=== PATIENT | male | born 1975 | race African-American/Black ===

== ENCOUNTER 2016-09-21 01:07 | Inpatient (IN) | payer OTHER ==
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
[2016-09-21 04:04] VITALS: BMI 25.2
[2016-09-21] MEDS ORDERED: NICOTINE POLACRILEX 2 MG GUM BUC PRN (04:14)
[2016-09-21] MEDS ORDERED: MAGNESIUM CITRATE 300 ML BOTTLE PO PRN (04:14)
[2016-09-21] MEDS ORDERED: MAGNESIUM HYDROX 2400MG/30ML ORAL SUSPENSION 30 ML CUP PO PRN (04:14)
[2016-09-21] MEDS ORDERED: P-EPHED 60MG/TRIPROLIDI 2.5MG TABLET PO PRN (04:14)
[2016-09-21] MEDS ORDERED: guaiFENesin/D-METHORPHAN HB 10 ML UNIT-DOSE CUPS PO PRN (04:14)
[2016-09-21] MEDS ORDERED: chlordiazePOXIDE HCL 25 MG CAPSULE PO PRN (04:14)
[2016-09-21] MEDS ORDERED: IBUPROFEN 400 MG TABLET (FP) PO PRN (04:14)
[2016-09-21] MEDS ORDERED: diphenhydrAMINE HCL 50 MG CAPSULE PO PRN (04:14)
[2016-09-21] MEDS ORDERED: hydrOXYzine PAMOATE 50 MG CAPSULE (FP) PO PRN (04:14)
[2016-09-21] MEDS ORDERED: MAG HYDROX/AL HYDROX/SIMETH 30 ML UNIT-DOSE CUP PO PRN (04:14)
[2016-09-21] MEDS ORDERED: MENTHOL/PHENOL 1 EACH UD MM PRN (04:14)
[2016-09-21] MEDS ORDERED: LOPERAMIDE HCL 2 MG CAPSULE PO PRN (04:14)
[2016-09-21] MEDS ORDERED: ACETAMINOPHEN 325 MG TABLET (FP) PO PRN (04:14)
[2016-09-21] MEDS: chlordiazePOXIDE HCL 25 MG CAPSULE PO SCH ×4 (05:19→22:17)
[2016-09-21] MEDS: PRENATAL VITAMINS W/ FOLIC ACID TABLET (FP) PO SCH (10:27)
[2016-09-21] MEDS: NICOTINE 21 MG/24 HOURS TOPICAL PATCH TD SCH (10:27)
--- NOTE | 2016-09-21 11:52 | PN ---
S Progress Note Note: PT WAS ADMITTED EARLIER THIS MORNING. ALERT ORIENTED X 3. DENIES ANY DISCOMFORT DURING ROUNDS. SITTING IN DAY ROOM WATCHING TV BUT STATES "I'M JUST TIRED, THAT' S ALL". Vital Signs Temperature 98.6 F 09/21/16 09:41 Pulse Rate 79 09/21/16 09:41 Respiratory Rate 18 09/21/16 09:41 Blood Pressure 112/76 09/21/16 09:41 O2 Sat by Pulse Oximetry (%) LABS PENDING. CONTINUE DETOX
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
[2016-09-21 19:16] LABS: URINE APPEARANCE CLEAR; URINE BILIRUBIN NEGATIVE (NEGATIVE); URINE BLOOD NEGATIVE (NEGATIVE); URINE COLOR YELLOW; URINE GLUCOSE (UA) NEGATIVE (NEGATIVE); URINE KETONE TRACE (NEGATIVE); URINE LEUK ESTERASE NEGATIVE (NEGATIVE); URINE NITRITE NEGATIVE (NEGATIVE); URINE PROTEIN NEGATIVE (NEGATIVE); URINE UROBILINOGEN NEGATIVE E.U./dl (0.2-1.0)
[2016-09-21] MEDS: THIAMINE HCL 100 MG TABLET (FP) PO SCH (22:17)
[2016-09-22] MEDS: chlordiazePOXIDE HCL 25 MG CAPSULE PO SCH ×4 (05:52→22:17)
--- NOTE | 2016-09-22 09:51 | PN ---
[facility] CIWA - CIWA Score Nausea/Vomitin-No Nausea/No Vomiting Muscle Tremors: 4-Moderate,w/Arms Extend Anxiety: 4-Mod. Anxious/Guarded Agitation: 4-Moderately Restless Paroxysmal Sweats: 1-Minimal Palms Moist Orientation: 0-Oriented Tacttile Disturbances: 3-Moderate Itch/Numb/Burn Auditory Disturbances: 0-None Visual Disturbances: 0-None Headache: 0-None Present CIWA-Ar Total Score: 16 BHS Progress Note (SOAP) Subjective: ANXIETY,FATIGUE,IRRITABILITY. Objective: 09/22/16 09:50 Vital Signs Temperature 95.6 F L 09/22/16 09:17 Pulse Rate 55 L 09/22/16 09:17 Respiratory Rate 18 09/22/16 09:17 Blood Pressure 101/70 09/22/16 09:17 O2 Sat by Pulse Oximetry (%) Laboratory Last Values Urine Color Yellow 09/21/16 14:00 Urine Appearance Clear 09/21/16 14:00 Urine pH 5.0 (5.0-8.0) 09/21/16 14:00 Ur Specific [place] 1.033 (1.001-1.035) 09/21/16 14:00 Urine Protein Negative (NEGATIVE) 09/21/16 14:00 Urine Glucose (UA) Negative (NEGATIVE) 09/21/16 14:00 Urine Ketones Trace (NEGATIVE) H 09/21/16 14:00 Urine Blood Negative (NEGATIVE) 09/21/16 14:00 Urine Nitrite Negative (NEGATIVE) 09/21/16 14:00 Urine Bilirubin Negative (NEGATIVE) 09/21/16 14:00 Urine Urobilinogen Negative E.U./dl (0.2-1.0) 09/21/16 14:00 Ur Leukocyte Esterase Negative (NEGATIVE) 09/21/16 14:00 OTHER LABS PENDING Assessment: 09/22/16 09:50 WITHDRAWAL SX Plan: CONTINUE DETOX
[2016-09-22 10:16] LABS: MCH 33.2 pg (25.7-33.7); MCHC 33.8 g/dl (32.0-35.9); MEAN CELL VOLUME 98.1 fl (80-96); MEAN PLT VOLUME 8.7 fl (7.5-11.1); PLATELET COUNT 157 K/MM3 (134-434); RDW 13.9 % (11.9-15.9); WHITE BLOOD COUNT 4.7 K/mm3 (4.0-10.0)
[2016-09-22] MEDS: NICOTINE 21 MG/24 HOURS TOPICAL PATCH TD SCH (10:21)
[2016-09-22] MEDS: PRENATAL VITAMINS W/ FOLIC ACID TABLET (FP) PO SCH (10:21)
[2016-09-22 10:39] LABS: ALBUMIN 3.3 g/dl (3.4-5.0); ALK PHOS 55 U/L (45-117); ANION GAP 8 (8-16); BILIRUBIN,TOTAL 0.2 mg/dL (0.2-1.0); CALCIUM 8.2 mg/dL (8.5-10.1); CO2 27 mmol/L (21-32); CREATININE 0.8 mg/dL (0.7-1.3); GLUCOSE,RANDOM 92 mg/dL (74-106); SGOT/AST 17 U/L (15-37); SGPT/ALT 23 U/L (12-78); TOT PROT 5.6 g/dl (6.4-8.2)
[2016-09-22 11:35] LABS: HIV 1 & 2 AB NEGATIVE; HIV 1 AGp24 NEGATIVE
[2016-09-22] MEDS: THIAMINE HCL 100 MG TABLET (FP) PO SCH (22:17)
[2016-09-22] MEDS: ZOLPIDEM TARTRATE 10 MG TABLET (PARK CARE ONLY) PO PRN (22:18)
[2016-09-23] MEDS: chlordiazePOXIDE 5 MG CAPSULE PO SCH ×4 (05:54→22:19)
[2016-09-23] MEDS: PRENATAL VITAMINS W/ FOLIC ACID TABLET (FP) PO SCH (10:17)
[2016-09-23] MEDS: NICOTINE 21 MG/24 HOURS TOPICAL PATCH TD SCH (10:18)
--- NOTE | 2016-09-23 10:42 | PN ---
[facility] CIWA - CIWA Score Nausea/Vomitin-No Nausea/No Vomiting Muscle Tremors: 4-Moderate,w/Arms Extend Anxiety: 4-Mod. Anxious/Guarded Agitation: 4-Moderately Restless Paroxysmal Sweats: 1-Minimal Palms Moist Orientation: 0-Oriented Tacttile Disturbances: 3-Moderate Itch/Numb/Burn Auditory Disturbances: 0-None Visual Disturbances: 0-None Headache: 0-None Present CIWA-Ar Total Score: 16 BHS Progress Note (SOAP) Subjective: ANXIETY,IRRITABILITY,SWEATS. Objective: 09/23/16 10:41 Vital Signs Temperature 96.4 F L 09/23/16 09:41 Pulse Rate 57 L 09/23/16 09:41 Respiratory Rate 18 09/23/16 09:41 Blood Pressure 99/64 09/23/16 09:41 O2 Sat by Pulse Oximetry (%) Laboratory Last Values WBC 4.7 K/mm3 (4.0-10.0) D 09/22/16 07:00 RBC 4.24 M/mm3 (4.00-5.60) 09/22/16 07:00 Hgb 14.1 GM/dL (11.7-16.9) 09/22/16 07:00 Hct 41.6 % (35.4-49) 09/22/16 07:00 MCV 98.1 fl (80-96) H 09/22/16 07:00 MCHC 33.8 g/dl (32.0-35.9) 09/22/16 07:00 RDW 13.9 % (11.9-15.9) 09/22/16 07:00 Plt Count 157 K/MM3 (134-434) D 09/22/16 07:00 MPV 8.7 fl (7.5-11.1) 09/22/16 07:00 Sodium 142 mmol/L (136-145) 09/22/16 07:00 Potassium 4.0 mmol/L (3.5-5.1) 09/22/16 07:00 Chloride 107 mmol/L (98-107) 09/22/16 07:00 Carbon Dioxide 27 mmol/L (21-32) 09/22/16 07:00 Anion Gap 8 (8-16) 09/22/16 07:00 BUN 15 mg/dL (7-18) D 09/22/16 07:00 Creatinine 0.8 mg/dL (0.7-1.3) 09/22/16 07:00 Creat Clearance w eGFR > 60 (>60) 09/22/16 07:00 Random Glucose 92 mg/dL (74-106) 09/22/16 07:00 Calcium 8.2 mg/dL (8.5-10.1) L 09/22/16 07:00 Total Bilirubin 0.2 mg/dL (0.2-1.0) D 09/22/16 07:00 AST 17 U/L (15-37) D 09/22/16 07:00 ALT 23 U/L (12-78) 09/22/16 07:00 Alkaline Phosphatase 55 U/L (45-117) 09/22/16 07:00 Total Protein 5.6 g/dl (6.4-8.2) L D 09/22/16 07:00 Albumin 3.3 g/dl (3.4-5.0) L D 09/22/16 07:00 Urine Color Yellow 09/21/16 14:00 Urine Appearance Clear 09/21/16 14:00 Urine pH 5.0 (5.0-8.0) 09/21/16 14:00 Ur Specific [place] 1.033 (1.001-1.035) 09/21/16 14:00 Urine Protein Negative (NEGATIVE) 09/21/16 14:00 Urine Glucose (UA) Negative (NEGATIVE) 09/21/16 14:00 Urine Ketones Trace (NEGATIVE) H 09/21/16 14:00 Urine Blood Negative (NEGATIVE) 09/21/16 14:00 Urine Nitrite Negative (NEGATIVE) 09/21/16 14:00 Urine Bilirubin Negative (NEGATIVE) 09/21/16 14:00 Urine Urobilinogen Negative E.U./dl (0.2-1.0) 09/21/16 14:00 Ur Leukocyte Esterase Negative (NEGATIVE) 09/21/16 14:00 RPR Titer Nonreactive (NONREACTIVE) 09/22/16 07:00 Hepatitis C Antibody <0.1 s/co ratio (0.0-0.9) 09/21/16 07:00 HIV 1&2 Antibody Screen Negative 09/22/16 07:00 HIV P24 Antigen Negative 09/22/16 07:00 Assessment: 09/23/16 10:41 WITHDRAWAL SX Plan: CONTINUE DETOX
[2016-09-23] MEDS: ZOLPIDEM TARTRATE 10 MG TABLET (PARK CARE ONLY) PO PRN (22:19)
[2016-09-23] MEDS: THIAMINE HCL 100 MG TABLET (FP) PO SCH (22:19)
[2016-09-24] MEDS: chlordiazePOXIDE HCL 10 MG CAPSULE PO SCH ×2 (05:53→10:00)
[2016-09-24] MEDS: NICOTINE 21 MG/24 HOURS TOPICAL PATCH TD SCH (09:45)
[2016-09-24] MEDS: PRENATAL VITAMINS W/ FOLIC ACID TABLET (FP) PO SCH (09:46)
--- NOTE | 2016-09-24 10:30 | DS ---
[facility] Detox Discharge Summary Admission Date: 09/21/16 Discharge Date: 09/24/16 - History Present History: Alcohol Dependence, Pcp Dependence Pertinent Past History: Fracture lt. rib - Physical Exam Results Vital Signs: Vital Signs Temperature 96.3 F L 09/24/16 06:44 Pulse Rate 56 L 09/24/16 06:44 Respiratory Rate 18 09/24/16 06:44 Blood Pressure 107/67 09/24/16 06:44 O2 Sat by Pulse Oximetry (%) Pertinent Admission Physical Exam Findings: Withdrawal sx. Laboratory Last Values WBC 4.7 K/mm3 (4.0-10.0) D 09/22/16 07:00 RBC 4.24 M/mm3 (4.00-5.60) 09/22/16 07:00 Hgb 14.1 GM/dL (11.7-16.9) 09/22/16 07:00 Hct 41.6 % (35.4-49) 09/22/16 07:00 MCV 98.1 fl (80-96) H 09/22/16 07:00 MCHC 33.8 g/dl (32.0-35.9) 09/22/16 07:00 RDW 13.9 % (11.9-15.9) 09/22/16 07:00 Plt Count 157 K/MM3 (134-434) D 09/22/16 07:00 MPV 8.7 fl (7.5-11.1) 09/22/16 07:00 Sodium 142 mmol/L (136-145) 09/22/16 07:00 Potassium 4.0 mmol/L (3.5-5.1) 09/22/16 07:00 Chloride 107 mmol/L (98-107) 09/22/16 07:00 Carbon Dioxide 27 mmol/L (21-32) 09/22/16 07:00 Anion Gap 8 (8-16) 09/22/16 07:00 BUN 15 mg/dL (7-18) D 09/22/16 07:00 Creatinine 0.8 mg/dL (0.7-1.3) 09/22/16 07:00 Creat Clearance w eGFR > 60 (>60) 09/22/16 07:00 Random Glucose 92 mg/dL (74-106) 09/22/16 07:00 Calcium 8.2 mg/dL (8.5-10.1) L 09/22/16 07:00 Total Bilirubin 0.2 mg/dL (0.2-1.0) D 09/22/16 07:00 AST 17 U/L (15-37) D 09/22/16 07:00 ALT 23 U/L (12-78) 09/22/16 07:00 Alkaline Phosphatase 55 U/L (45-117) 09/22/16 07:00 Total Protein 5.6 g/dl (6.4-8.2) L D 09/22/16 07:00 Albumin 3.3 g/dl (3.4-5.0) L D 09/22/16 07:00 Urine Color Yellow 09/21/16 14:00 Urine Appearance Clear 09/21/16 14:00 Urine pH 5.0 (5.0-8.0) 09/21/16 14:00 Ur Specific [place] 1.033 (1.001-1.035) 09/21/16 14:00 Urine Protein Negative (NEGATIVE) 09/21/16 14:00 Urine Glucose (UA) Negative (NEGATIVE) 09/21/16 14:00 Urine Ketones Trace (NEGATIVE) H 09/21/16 14:00 Urine Blood Negative (NEGATIVE) 09/21/16 14:00 Urine Nitrite Negative (NEGATIVE) 09/21/16 14:00 Urine Bilirubin Negative (NEGATIVE) 09/21/16 14:00 Urine Urobilinogen Negative E.U./dl (0.2-1.0) 09/21/16 14:00 Ur Leukocyte Esterase Negative (NEGATIVE) 09/21/16 14:00 RPR Titer Nonreactive (NONREACTIVE) 09/22/16 07:00 Hepatitis C Antibody <0.1 s/co ratio (0.0-0.9) 09/21/16 07:00 HIV 1&2 Antibody Screen Negative 09/22/16 07:00 HIV P24 Antigen Negative 09/22/16 07:00 labs noted - Treatment Hospital Course: Detox Protocol Followed, Detoxed Safely, Responded well, Discharged Condition Good, Rehab Referral Accepted Patient has Accepted a Rehab Referral to: Pt. will enter [facility] on 09/26 here. - Medication Discharge Medications: Ambulatory Orders NK [No Known Home Medication] 09/21/16 - Diagnosis (1) Alcohol dependence with uncomplicated withdrawal Current Visit: Yes Status: Acute (2) Nicotine dependence Current Visit: Yes Status: Acute Qualifiers: Nicotine product type: cigarettes Substance use status: uncomplicated Qualified Code(s): F17.210 - Nicotine dependence, cigarettes, uncomplicated (3) PCP dependence Current Visit: Yes Status: Acute (4) Insomnia Current Visit: Yes Status: Chronic - AMA Did Patient Leave Against Medical Advice: No
[2016-09-24 10:49] VITALS: BP 108/72; PULSE 80; TEMP 96.5
== END 2016-09-24 10:30 | disposition home or self-care (01) | DRG 775 ==
LOC: YASAS 01:07 → Y3N 03:41
PROVIDERS: ADMIT Internal Medicine; ATTEND Internal Medicine
PROC: HZ2ZZZZ Detoxification Services for Substance Abuse Treatment (ICD-10-PCS; principal; 2016-09-24)
DX: F10.230 Alcohol dependence with withdrawal, uncomplicated (principal); F17.210 Nicotine dependence, cigarettes, uncomplicated; F16.10 Hallucinogen abuse, uncomplicated; G47.00 Insomnia, unspecified; M54.5 Low back pain; G89.29 Other chronic pain; Z87.81 Personal history of (healed) traumatic fracture
CPT/HCPCS: 36415; 80053; 81003; 85027; 86593; 87389

== ENCOUNTER 2016-09-21 01:19 | Emergency (ER) | payer OTHER ==
[2016-09-21 01:36] VITALS: BP 112/67; PULSE 83; TEMP 98.2; BMI 25.7
--- NOTE | 2016-09-21 01:48 | PDOC ---
Rapid Medical Evaluation Medical Evaluation: Allergies Allergy/AdvReac Type Severity Reaction Status Date / Time No Known Allergies Allergy Verified 09/21/16 01:32 Vital Signs Temp Pulse Resp BP Pulse Ox 98.2 F 83 18 112/67 97 09/21/16 01:33 09/21/16 01:33 09/21/16 01:33 09/21/16 01:33 09/21/16 01:33 09/21/16 01:35 Called Detox and spoke to Dr. Levine/ext [id number]. Dr. Levine states pt was unable to answer appropriate questions due to intoxication. Pt will need medical clearance prior to transfer to detox unit. <Esteban Bowles - Last Filed: 09/21/16 01:51> Medical Evaluation: Allergies Allergy/AdvReac Type Severity Reaction Status Date / Time No Known Allergies Allergy Verified 09/21/16 01:32 Vital Signs Temp Pulse Resp BP Pulse Ox 98.2 F 83 18 112/67 97 09/21/16 01:33 09/21/16 01:33 09/21/16 01:33 09/21/16 01:33 09/21/16 01:33 <Isis Guzman - Last Filed: 09/21/16 03:12> Chief Complaint: Alcohol intoxication Time Seen by Provider: 09/21/16 01:35
[2016-09-21 01:59] LABS: BASOPHIL 0.6 % (0-2.0); EOSINOPHIL 1.3 % (0-4.5); MCH 33.1 pg (25.7-33.7); MCHC 34.6 g/dl (32.0-35.9); MEAN CELL VOLUME 95.7 fl (80-96); MEAN PLT VOLUME 8.4 fl (7.5-11.1); NEUTROPHILS 61.7 % (42.8-82.8); PLATELET COUNT 209 K/MM3 (134-434); RDW 13.5 % (11.9-15.9); WHITE BLOOD COUNT 7.8 K/mm3 (4.0-10.0)
[2016-09-21 02:29] LABS: ALBUMIN 4.5 g/dl (3.4-5.0); ANION GAP 13 (8-16); BILIRUBIN,TOTAL 0.3 mg/dL (0.2-1.0); CALCIUM 9.3 mg/dL (8.5-10.1); CO2 25 mmol/L (21-32); GLUCOSE,RANDOM 84 mg/dL (74-106); SGOT/AST 22 U/L (15-37); SGPT/ALT 26 U/L (12-78); TOT PROT 7.2 g/dl (6.4-8.2)
[2016-09-21 02:30] LABS: ALK PHOS 60 U/L (45-117); URINE APPEARANCE CLEAR; URINE BILIRUBIN NEGATIVE (NEGATIVE); URINE BLOOD 1+ (NEGATIVE); URINE COLOR COLORLESS; URINE GLUCOSE (UA) NEGATIVE (NEGATIVE); URINE KETONE NEGATIVE (NEGATIVE); URINE LEUK ESTERASE NEGATIVE (NEGATIVE); URINE NITRITE NEGATIVE (NEGATIVE); URINE PROTEIN NEGATIVE (NEGATIVE); URINE UROBILINOGEN NEGATIVE E.U./dl (0.2-1.0)
[2016-09-21 02:32] LABS: URINE RBC <1 /hpf (0-3); URINE WBC <1 /hpf (3-5)
[2016-09-21 02:44] LABS: URINE MARIJUANA THC NEGATIVE ng/ml (CUTOFF=50)
--- NOTE | 2016-09-21 03:12 | PDOC ---
History of Present Illness - General Chief Complaint: Alcohol intoxication Stated Complaint: DETOX Time Seen by Provider: 09/21/16 01:40 History Source: Patient Exam Limitations: Clinical Condition - History of Present Illness Initial Comments: 09/21/16 03:12 Patient presents to this ED wanting detox from drugs and alcohol. Detox unit notified and would like patient to be medically cleared. Patient denies any other complaints at this time. Past History - Travel Traveled outside of the country in the last 30 days: No Close contact w/someone who was outside of country & ill: No - Past Medical History Allergies/Adverse Reactions: Allergies Allergy/AdvReac Type Severity Reaction Status Date / Time No Known Allergies Allergy Verified 09/21/16 01:32 Home Medications: Ambulatory Orders NK [No Known Home Medication] 09/21/16 Other medical history: denies - Psycho/Social/Smoking Cessation Hx Suicidal Ideation: No Smoking History: Current every day smoker Information on smoking cessation initiated: Yes 'Breaking Loose' booklet given: 09/21/16 Review of Systems - Review of Systems Able to Perform ROS?: Yes Is the patient limited [place] proficient: No Constitutional: No: Chills, Fever Respiratory: No: Cough, Orthopnea, Shortness of Breath, Stridor, Wheezing, Productive cough Cardiac (ROS): No: Chest Pain ABD/GI: No: Constipated, Diarrhea, Nausea, Poor Appetite, Poor Fluid Intake, Rectal Bleeding, Vomiting : No: Dysuria Musculoskeletal: No: Back Pain Integumentary: No: Bruising, Erythema, Rash, Sweating Neurological: Yes: Other (Intoxicated.) All Other Systems: Reviewed and Negative *Physical Exam - Vital Signs Last Vital Signs Temp Pulse Resp BP Pulse Ox 98.2 F 83 18 112/67 97 09/21/16 01:33 09/21/16 01:33 09/21/16 01:33 09/21/16 01:33 09/21/16 01:33 - Physical Exam General Appearance: Yes: Appropriately Dressed, Alcohol on Breath, Intoxicated. No: Apparent Distress, Mild Distress, Moderate Distress, Severe Distress HEENT: positive: EOMI, LEENA, Normal ENT Inspection, Symmetrical, TMs Normal, Pharynx Normal Neck: positive: Trachea midline, Supple. negative: Rigid, Stridor, Lymphadenopathy (R), Lymphadenopathy (L) Respiratory/Chest: positive: Lungs Clear, Normal Breath Sounds. negative: Chest Tender, Respiratory Distress, Accessory Muscle Use, Labored Respiration, Rapid RR Cardiovascular: positive: Regular Rhythm, Regular Rate. negative: Edema, JVD, Murmur Gastrointestinal/Abdominal: positive: Normal Bowel Sounds, Soft. negative: Distended, Guarding, Rebound, Tenderness Musculoskeletal: positive: Normal Inspection. negative: CVA Tenderness Extremity: positive: Normal Capillary Refill, Normal Inspection, Normal Range of Motion. negative: Swelling Integumentary: positive: Normal Color, Dry, Warm. negative: Rash, Swelling, Bruising Neurologic: positive: service parts driver II-XII NML intact, Alert, Normal Mood/Affect, Normal Response, Motor Strength 5/5, Other (Appears intoxicated but is able to answer questions.) ED Treatment Course - LABORATORY CBC & Chemistry Diagram: 09/21/16 01:52 09/21/16 01:52 - ADDITIONAL ORDERS Additional order review: Laboratory Results 09/21/16 09/21/16 09/21/16 01:52 01:52 01:52 Sodium Potassium Chloride Carbon Dioxide Anion Gap BUN Creatinine Creat Clearance w eGFR Random Glucose Calcium Total Bilirubin AST ALT Alkaline Phosphatase Total Protein Albumin Urine Color Colorless Urine Appearance Clear Urine pH 5.0 Ur Specific [place] 1.002 Urine Protein Negative Urine Glucose (UA) Negative Urine Ketones Negative Urine Blood 1+ H Urine Nitrite Negative Urine Bilirubin Negative Urine Urobilinogen Negative Ur Leukocyte Esterase Negative Urine RBC <1 Urine WBC <1 Opiates Screen Negative Methadone Screen Negative Barbiturate Screen Negative Phencyclidine Screen Positive Ur Amphetamines Screen Negative MDMA (Ecstasy) Screen Negative Benzodiazepines Screen Negative Cocaine Screen Negative U Marijuana (THC) Screen Negative Alcohol, Quantitative 129.0 H* 09/21/16 01:52 Sodium 144 Potassium 3.5 Chloride 106 Carbon Dioxide 25 Anion Gap 13 BUN 12 Creatinine 1.0 Creat Clearance w eGFR > 60 Random Glucose 84 Calcium 9.3 Total Bilirubin 0.3 AST 22 ALT 26 Alkaline Phosphatase 60 Total Protein 7.2 Albumin 4.5 Urine Color Urine Appearance Urine pH Ur Specific [place] Urine Protein Urine Glucose (UA) Urine Ketones Urine Blood Urine Nitrite Urine Bilirubin Urine Urobilinogen Ur Leukocyte Esterase Urine RBC Urine WBC Opiates Screen Methadone Screen Barbiturate Screen Phencyclidine Screen Ur Amphetamines Screen MDMA (Ecstasy) Screen Benzodiazepines Screen Cocaine Screen U Marijuana (THC) Screen Alcohol, Quantitative 09/21/16 01:52 RBC 4.67 MCV 95.7 MCHC 34.6 RDW 13.5 MPV 8.4 Neutrophils % 61.7 Lymphocytes % 29.3 Monocytes % 7.1 Eosinophils % 1.3 Basophils % 0.6 *DC/Admit/Observation/Transfer Diagnosis at time of Disposition: Alcoholic intoxication Qualifiers: Complication of substance-induced condition: with unspecified complication Qualified Code(s): F10.129 - Alcohol abuse with intoxication, unspecified - Discharge Dispostion Disposition: I.P. ALCOHOL/SUBS ABUSE REHAB Condition at time of disposition: Fair Admit: No - Referrals Referrals: Bryan Blake MD [Primary Care Provider] - - Patient Instructions Printed Discharge Instructions: DI for Alcohol Abuse Print Language: CROATIAN
--- NOTE | 2016-09-21 03:41 | PDOC ---
*Physical Exam - Vital Signs Last Vital Signs Temp Pulse Resp BP Pulse Ox 98.2 F 83 18 112/67 97 09/21/16 01:33 09/21/16 01:33 09/21/16 01:33 09/21/16 01:33 09/21/16 01:33 ED Treatment Course - LABORATORY CBC & Chemistry Diagram: 09/21/16 01:52 09/21/16 01:52 - ADDITIONAL ORDERS Additional order review: Laboratory Results 09/21/16 09/21/16 09/21/16 01:52 01:52 01:52 Sodium Potassium Chloride Carbon Dioxide Anion Gap BUN Creatinine Creat Clearance w eGFR Random Glucose Calcium Total Bilirubin AST ALT Alkaline Phosphatase Total Protein Albumin Urine Color Colorless Urine Appearance Clear Urine pH 5.0 Ur Specific [place] 1.002 Urine Protein Negative Urine Glucose (UA) Negative Urine Ketones Negative Urine Blood 1+ H Urine Nitrite Negative Urine Bilirubin Negative Urine Urobilinogen Negative Ur Leukocyte Esterase Negative Urine RBC <1 Urine WBC <1 Opiates Screen Negative Methadone Screen Negative Barbiturate Screen Negative Phencyclidine Screen Positive Ur Amphetamines Screen Negative MDMA (Ecstasy) Screen Negative Benzodiazepines Screen Negative Cocaine Screen Negative U Marijuana (THC) Screen Negative Alcohol, Quantitative 129.0 H* 09/21/16 01:52 Sodium 144 Potassium 3.5 Chloride 106 Carbon Dioxide 25 Anion Gap 13 BUN 12 Creatinine 1.0 Creat Clearance w eGFR > 60 Random Glucose 84 Calcium 9.3 Total Bilirubin 0.3 AST 22 ALT 26 Alkaline Phosphatase 60 Total Protein 7.2 Albumin 4.5 Urine Color Urine Appearance Urine pH Ur Specific [place] Urine Protein Urine Glucose (UA) Urine Ketones Urine Blood Urine Nitrite Urine Bilirubin Urine Urobilinogen Ur Leukocyte Esterase Urine RBC Urine WBC Opiates Screen Methadone Screen Barbiturate Screen Phencyclidine Screen Ur Amphetamines Screen MDMA (Ecstasy) Screen Benzodiazepines Screen Cocaine Screen U Marijuana (THC) Screen Alcohol, Quantitative 09/21/16 01:52 RBC 4.67 MCV 95.7 MCHC 34.6 RDW 13.5 MPV 8.4 Neutrophils % 61.7 Lymphocytes % 29.3 Monocytes % 7.1 Eosinophils % 1.3 Basophils % 0.6 Medical Decision Making - Medical Decision Making 09/21/16 03:40 agree with care from SHEBA Guzman *DC/Admit/Observation/Transfer Diagnosis at time of Disposition: Alcohol intoxication Qualifiers: Complication of substance-induced condition: with unspecified complication Qualified Code(s): F10.129 - Alcohol abuse with intoxication, unspecified - Discharge Dispostion Disposition: I.P. ALCOHOL/SUBS ABUSE REHAB Condition at time of disposition: Fair - Referrals Referrals: Bryan Blake MD [Primary Care Provider] - - Patient Instructions Printed Discharge Instructions: DI for Alcohol Abuse Print Language: [place] - Post Discharge Activity
--- NOTE | 2016-09-21 13:56 | EKG ---
Test Reason : Blood Pressure : / mmHG Vent. Rate : 058 BPM Atrial Rate : 058 BPM P-R Int : 146 ms QRS Dur : 096 ms QT Int : 422 ms P-R-T Axes : 005 047 017 degrees QTc Int : 414 ms SINUS BRADYCARDIA INCOMPLETE RIGHT BUNDLE BRANCH BLOCK BORDERLINE ECG NO PREVIOUS ECGS AVAILABLE Confirmed by ELEANOR CUENCA MD ([id number]) on 09/21/2016 1:56:18 PM Referred By: Confirmed By:ELEANOR CUENCA MD
== END 2016-09-21 03:30 | disposition home or self-care (01) ==
LOC: JER 01:19
DX: F10.129 Alcohol abuse with intoxication, unspecified (principal); F17.210 Nicotine dependence, cigarettes, uncomplicated; Y90.6 Blood alcohol level of 120-199 mg/100 ml
CPT/HCPCS: 36415; 71010-TC; 80053; 80307; 81003; 81015; 85025; 93005; 93010; 99283-25

== ENCOUNTER 2017-05-16 16:09 | Inpatient (IN) | payer OTHER ==
[2017-05-16 17:00] VITALS: BMI 27.1
--- NOTE | 2017-05-16 20:03 | HP ---
Admission ROS [facility] Chief Complaint: I WANT TO GO TO REHAB Allergies/Adverse Reactions: Allergies Allergy/AdvReac Type Severity Reaction Status Date / Time No Known Allergies Allergy Verified 05/16/17 19:33 History of Present Illness: 41 YEARS OLD MALE WITH LONG HISTORY OF PCP NICOTINE DEPENDENCE DENIES MEDICAL ISSUE HAS DEPRESSION IS ADMITTED TO DETOX Exam Limitations: No Limitations - Ebola screening Have you traveled outside of the country in the last 21 days: No Have you had contact with anyone from an Ebola affected area: No Have you been sick,other than usual withdrawal symptoms: No Do you have a fever: No - Review of Systems Constitutional: Changes in sleep, Weight Stable EENT: reports: No Symptoms Reported Respiratory: reports: No Symptoms reported Cardiac: reports: No Symptoms Reported GI: reports: No Symptoms Reported : reports: No Symptoms Reported Musculoskeletal: reports: Back Pain (SINCE 2012) Integumentary: reports: No Symptoms Reported Neuro: reports: No Symptoms reported Endocrine: reports: No Symptoms Reported Hematology: reports: No Symptoms Reported Psychiatric: reports: No Sypmtoms Reported, Judgement Intact, Mood/Affect Appropiate, Orientated x3 Other Systems: Reviewed and Negative Patient History - Patient Medical History Hx Anemia: No Hx Asthma: No Hx Chronic Obstructive Pulmonary Disease (COPD): No Hx Cancer: No Hx Cardiac Disorders: No Hx Congestive Heart Failure: No Hx Hypertension: No Hx Hypercholesterolemia: No Hx Pacemaker: No HX Cerebrovascular Accident: No Hx Seizures: No Hx Dementia: No Hx Diabetes: No Hx Gastrointestinal Disorders: No Hx Liver Disease: No Hx Genitourinary Disorders: No Hx Sexually Transmitted Disorders: No Hx Renal Disease (ESRD): No Hx Thyroid Disease: No Hx Human Immunodeficiency Virus (HIV): No (LAST 2014) Hx Hepatitis C: No Hx Depression: Yes Hx Suicide Attempt: No Hx Bipolar Disorder: No Hx Schizophrenia: No - Patient Surgical History Past Surgical History: No - PPD History Previous Implant?: Yes Documented Results: Negative w/proof Implanted On Prior R Admission?: Yes Date: 09/23/16 PPD to be Administered?: No - Smoking Cessation Smoking history: Current every day smoker Have you smoked in the past 12 months: Yes Aproximately how many cigarettes per day: 5 Cigars Per Day: 0 Hx Chewing Tobacco Use: No Initiated information on smoking cessation: Yes 'Breaking Loose' booklet given: 05/16/17 - Substance & Tx. History Hx Alcohol Use: No Hx Substance Use: Yes Substance Use Type: Cocaine Hx Substance Use Treatment: Yes (11/2016 [facility]) - Substances Abused PCP Route: Smoking Frequency: 3-6 times per week Amount used: 3 JOINTS Age of first use: 18 Date of Last Use: 11/13/16 Alcohol Frequency: 1-2 times per week Amount used: WINE 9OZ Age of first use: 16 Date of Last Use: 04/25/17 Family Disease History - Family Disease History Family Disease History: Diabetes: Mother (), Sister (), Heart Disease: Father (ALCOHOL), Mother, Sister, Other: Father, Mother, Sister Admission Physical Exam [facility] - Vital Signs Vital Signs: Vital Signs - 24 hr 05/16/17 16:57 Temperature 98.4 F Pulse Rate 72 Respiratory 18 Rate Blood Pressure 132/80 - Physical General Appearance: Yes: No Apparent Distress, Nourished, Appropriately Dressed HEENTM: Yes: Hearing grossly Normal, Normal ENT Inspection, Normocephalic, Normal Voice Respiratory: Yes: Chest Non-Tender, Lungs Clear, Normal Breath Sounds, No Respiratory Distress, No Accessory Muscle Use Neck: Yes: Supple, Trachea in good position Breast: Yes: Breasts Symetrical Cardiology: Yes: Regular Rhythm, Regular Rate, S1, S2 Abdominal: Yes: Normal Bowel Sounds, Non Tender, Soft Genitourinary: Yes: Within Normal Limits Back: Yes: Within Normal Limits Musculoskeletal: Yes: full range of Motion, Gait Steady, Back pain (CHRONIC) Extremities: Yes: Normal Inspection, Normal Range of Motion, Non-Tender Neurological: Yes: Fully Oriented, Alert, Motor Strength 5/5, Normal Mood/Affect , Normal Response Integumentary: Yes: Warm Lymphatic: Yes: Within Normal Limits - Diagnostic (1) Alcohol dependence with uncomplicated withdrawal Current Visit: Yes Status: Acute (2) Depression Current Visit: Yes Status: Suspected Qualifiers: Depression Type: dysthymia Qualified Code(s): F34.1 - Dysthymic disorder; F34.1 - Dysthymic disorder; F34.1 - Dysthymic disorder (3) Nicotine dependence Current Visit: Yes Status: Acute Qualifiers: Nicotine product type: cigarettes Substance use status: in withdrawal Qualified Code(s): F17.213 - Nicotine dependence, cigarettes, with withdrawal; F17.213 - Nicotine dependence, cigarettes, with withdrawal (4) PCP dependence Current Visit: Yes Status: Chronic (5) Chronic low back pain Current Visit: Yes Status: Chronic Qualifiers: Back pain laterality: bilateral Sciatica presence: without sciatica Qualified Code(s): M54.5 - Low back pain; M54.5 - Low back pain; G89.29 - Other chronic pain; G89.29 - Other chronic pain Cleared for Admission [facility] - Detox or Rehab [facility] Level of Care: Observation Bed Detox Regimen/Protocol: Not Applicable Claeared for Rehab Admission: Yes [facility] Breath Alcohol Content Breath Alcohol Content: 0 Urine Drug Screen - Results Drug Screen Negative: Yes Inpatient Rehab Admission - Initial Determination Are CD services needed?: Yes Free of communicable disease: Yes Not in need of hospitalization: Yes - Rehab Admission Criteria Previous failed treatment: Yes Poor recovery environment: Yes Comorbidities: Yes Lacks judgement: No Patient is meeting Inpatient Rehab admission criteria:: Yes
[2017-05-16] MEDS ORDERED: NICOTINE 14 MG/24 HOURS TOPICAL PATCH TD PRN (20:10)
[2017-05-16] MEDS ORDERED: LOPERAMIDE HCL 2 MG CAPSULE PO PRN (20:10)
[2017-05-16] MEDS ORDERED: MENTHOL/PHENOL 1 EACH UD MM PRN (20:10)
[2017-05-16] MEDS ORDERED: ACETAMINOPHEN 325 MG TABLET (FP) PO PRN (20:10)
[2017-05-16] MEDS ORDERED: MAG HYDROX/AL HYDROX/SIMETH 30 ML UNIT-DOSE CUP PO PRN (20:10)
[2017-05-16] MEDS ORDERED: P-EPHED 60MG/TRIPROLIDI 2.5MG TABLET PO PRN (20:10)
[2017-05-16] MEDS ORDERED: MAGNESIUM HYDROX 2400MG/30ML ORAL SUSPENSION 30 ML CUP PO PRN (20:10)
[2017-05-16] MEDS ORDERED: MAGNESIUM CITRATE 300 ML BOTTLE PO PRN (20:10)
[2017-05-16] MEDS ORDERED: guaiFENesin/D-METHORPHAN HB 10 ML UNIT-DOSE CUPS PO PRN (20:10)
[2017-05-16] MEDS ORDERED: NICOTINE POLACRILEX 2 MG GUM BC PRN (20:10)
[2017-05-16] MEDS ORDERED: diphenhydrAMINE HCL 50 MG CAPSULE PO PRN (20:10)
[2017-05-16] MEDS: THIAMINE HCL 100 MG TABLET (FP) PO SCH (21:25)
[2017-05-16] MEDS: IBUPROFEN 400 MG TABLET (FP) PO PRN (21:25)
[2017-05-16 22:55] LABS: URINE APPEARANCE CLEAR; URINE BILIRUBIN NEGATIVE (NEGATIVE); URINE BLOOD NEGATIVE (NEGATIVE); URINE COLOR YELLOW; URINE GLUCOSE (UA) NEGATIVE (NEGATIVE); URINE KETONE NEGATIVE (NEGATIVE); URINE NITRITE NEGATIVE (NEGATIVE); URINE PROTEIN NEGATIVE (NEGATIVE); URINE UROBILINOGEN NEGATIVE mg/dL (0.2-1.0)
[2017-05-17 09:24] LABS: URINE LEUK ESTERASE Negative (NEGATIVE)
[2017-05-17] MEDS: PRENATAL VITAMINS W/ FOLIC ACID TABLET (FP) PO SCH (10:15)
[2017-05-17] MEDS ORDERED: FLU VACCINE QUAD 60 MCG/0.5 ML (MDV 17-18) IM ONE (12:00)
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
[2017-05-17 13:22] LABS: MCH 32.3 pg (25.7-33.7); MCHC 33.2 g/dl (32.0-35.9); MEAN CELL VOLUME 97.2 fl (80-96); MEAN PLT VOLUME 8.8 fl (7.5-11.1); PLATELET COUNT 230 K/MM3 (134-434); RDW 13.8 % (11.9-15.9); WHITE BLOOD COUNT 6.3 K/mm3 (4.0-10.0)
--- NOTE | 2017-05-17 13:24 | EKG ---
Test Reason : Blood Pressure : / mmHG Vent. Rate : 065 BPM Atrial Rate : 065 BPM P-R Int : 152 ms QRS Dur : 110 ms QT Int : 406 ms P-R-T Axes : 066 047 051 degrees QTc Int : 422 ms NORMAL SINUS RHYTHM RIGHT BUNDLE BRANCH BLOCK ABNORMAL ECG WHEN COMPARED WITH ECG OF 21-SEP-2016 04:55, RIGHT BUNDLE BRANCH BLOCK HAS REPLACED INCOMPLETE RIGHT BUNDLE BRANCH BLOCK NONSPECIFIC T WAVE ABNORMALITY NO LONGER EVIDENT IN ANTERIOR LEADS Confirmed by ELEANOR CUENCA MD ([id number]) on 05/17/2017 1:24:05 PM Referred By: Confirmed By:ELEANOR CUENCA MD
[2017-05-17 13:33] LABS: ALBUMIN 3.8 g/dl (3.4-5.0); ANION GAP 12 (8-16); BILIRUBIN,TOTAL 0.3 mg/dL (0.2-1.0); CO2 25 mmol/L (21-32); CREATININE 0.9 mg/dL (0.7-1.3); GLUCOSE,RANDOM 128 mg/dL (74-106); SGOT/AST 16 U/L (15-37); SGPT/ALT 41 U/L (12-78); TOT PROT 6.8 g/dl (6.4-8.2)
[2017-05-17 13:34] LABS: ALK PHOS 76 U/L (45-117)
[2017-05-17] MEDS: THIAMINE HCL 100 MG TABLET (FP) PO SCH (21:36)
[2017-05-17] MEDS: MELATONIN 1 MG TABLET PO SCH (21:36)
[2017-05-17] MEDS: IBUPROFEN 400 MG TABLET (FP) PO PRN (21:37)
[2017-05-18] MEDS: PRENATAL VITAMINS W/ FOLIC ACID TABLET (FP) PO SCH (10:11)
--- NOTE | 2017-05-18 10:52 | PN ---
[facility] Progress Note Note: reviewed labs random glc is elevated non fasting co foot fungus will rx
[2017-05-18] MEDS: TOLNAFTATE 1% CREAM 15 GM TUBE TP SCH ×2 (12:05→21:25)
[2017-05-18] MEDS: THIAMINE HCL 100 MG TABLET (FP) PO SCH (21:25)
[2017-05-18] MEDS: MELATONIN 1 MG TABLET PO SCH (21:25)
[2017-05-19] MEDS: PRENATAL VITAMINS W/ FOLIC ACID TABLET (FP) PO SCH (09:52)
[2017-05-19] MEDS: TOLNAFTATE 1% CREAM 15 GM TUBE TP SCH ×2 (09:54→21:30)
[2017-05-19] MEDS: IBUPROFEN 400 MG TABLET (FP) PO PRN (21:29)
[2017-05-19] MEDS: THIAMINE HCL 100 MG TABLET (FP) PO SCH (21:29)
[2017-05-19] MEDS: MELATONIN 1 MG TABLET PO SCH (21:29)
[2017-05-20] MEDS: PRENATAL VITAMINS W/ FOLIC ACID TABLET (FP) PO SCH (10:13)
[2017-05-20] MEDS: TOLNAFTATE 1% CREAM 15 GM TUBE TP SCH ×2 (10:14→21:53)
[2017-05-20] MEDS: THIAMINE HCL 100 MG TABLET (FP) PO SCH (21:51)
[2017-05-20] MEDS: MELATONIN 1 MG TABLET PO SCH (21:52)
[2017-05-21] MEDS: PRENATAL VITAMINS W/ FOLIC ACID TABLET (FP) PO SCH (10:09)
[2017-05-21] MEDS: TOLNAFTATE 1% CREAM 15 GM TUBE TP SCH ×2 (10:09→21:35)
[2017-05-21] MEDS: THIAMINE HCL 100 MG TABLET (FP) PO SCH (21:35)
[2017-05-21] MEDS: MELATONIN 1 MG TABLET PO SCH (21:35)
[2017-05-22] MEDS: IBUPROFEN 400 MG TABLET (FP) PO PRN (06:35)
[2017-05-22] MEDS: PRENATAL VITAMINS W/ FOLIC ACID TABLET (FP) PO SCH (10:18)
[2017-05-22] MEDS: TOLNAFTATE 1% CREAM 15 GM TUBE TP SCH ×2 (10:18→21:39)
[2017-05-22] MEDS: THIAMINE HCL 100 MG TABLET (FP) PO SCH (21:38)
[2017-05-22] MEDS: MELATONIN 1 MG TABLET PO SCH (21:38)
[2017-05-23] MEDS: PRENATAL VITAMINS W/ FOLIC ACID TABLET (FP) PO SCH (10:10)
[2017-05-23] MEDS: TOLNAFTATE 1% CREAM 15 GM TUBE TP SCH ×2 (10:11→21:30)
[2017-05-23] MEDS: THIAMINE HCL 100 MG TABLET (FP) PO SCH (21:29)
[2017-05-23] MEDS: MELATONIN 1 MG TABLET PO SCH (21:29)
[2017-05-24] MEDS: TOLNAFTATE 1% CREAM 15 GM TUBE TP SCH ×2 (10:20→21:38)
[2017-05-24] MEDS: PRENATAL VITAMINS W/ FOLIC ACID TABLET (FP) PO SCH (10:20)
[2017-05-24] MEDS: MELATONIN 1 MG TABLET PO SCH (21:37)
[2017-05-24] MEDS: THIAMINE HCL 100 MG TABLET (FP) PO SCH (21:38)
[2017-05-25] MEDS: PRENATAL VITAMINS W/ FOLIC ACID TABLET (FP) PO SCH (10:29)
[2017-05-25] MEDS: TOLNAFTATE 1% CREAM 15 GM TUBE TP SCH ×2 (10:31→21:40)
[2017-05-25] MEDS: MELATONIN 1 MG TABLET PO SCH (21:40)
[2017-05-25] MEDS: THIAMINE HCL 100 MG TABLET (FP) PO SCH (21:40)
[2017-05-26] MEDS: PRENATAL VITAMINS W/ FOLIC ACID TABLET (FP) PO SCH (10:02)
[2017-05-26] MEDS: TOLNAFTATE 1% CREAM 15 GM TUBE TP SCH ×2 (10:02→21:36)
[2017-05-26] MEDS: MELATONIN 1 MG TABLET PO SCH (21:36)
[2017-05-26] MEDS: THIAMINE HCL 100 MG TABLET (FP) PO SCH (21:36)
[2017-05-27] MEDS: IBUPROFEN 400 MG TABLET (FP) PO PRN (06:36)
[2017-05-27] MEDS: PRENATAL VITAMINS W/ FOLIC ACID TABLET (FP) PO SCH (09:51)
[2017-05-27] MEDS: TOLNAFTATE 1% CREAM 15 GM TUBE TP SCH ×2 (09:51→21:27)
[2017-05-27] MEDS: MELATONIN 1 MG TABLET PO SCH (21:26)
[2017-05-27] MEDS: THIAMINE HCL 100 MG TABLET (FP) PO SCH (21:26)
[2017-05-28] MEDS: PRENATAL VITAMINS W/ FOLIC ACID TABLET (FP) PO SCH (10:05)
[2017-05-28] MEDS: TOLNAFTATE 1% CREAM 15 GM TUBE TP SCH ×2 (10:05→21:32)
[2017-05-28] MEDS: THIAMINE HCL 100 MG TABLET (FP) PO SCH (21:32)
[2017-05-28] MEDS: MELATONIN 1 MG TABLET PO SCH (21:32)
[2017-05-29] MEDS: TOLNAFTATE 1% CREAM 15 GM TUBE TP SCH ×2 (10:03→21:41)
[2017-05-29] MEDS: PRENATAL VITAMINS W/ FOLIC ACID TABLET (FP) PO SCH (10:03)
[2017-05-29] MEDS: MELATONIN 1 MG TABLET PO SCH (21:41)
[2017-05-29] MEDS: THIAMINE HCL 100 MG TABLET (FP) PO SCH (21:41)
[2017-05-30] MEDS: PRENATAL VITAMINS W/ FOLIC ACID TABLET (FP) PO SCH (10:06)
[2017-05-30] MEDS: IBUPROFEN 400 MG TABLET (FP) PO PRN (10:07)
[2017-05-30] MEDS: TOLNAFTATE 1% CREAM 15 GM TUBE TP SCH ×2 (10:07→21:23)
[2017-05-30] MEDS: MELATONIN 1 MG TABLET PO SCH (21:22)
[2017-05-30] MEDS: THIAMINE HCL 100 MG TABLET (FP) PO SCH (21:22)
[2017-05-31] MEDS: PRENATAL VITAMINS W/ FOLIC ACID TABLET (FP) PO SCH (10:06)
[2017-05-31] MEDS: TOLNAFTATE 1% CREAM 15 GM TUBE TP SCH ×2 (10:07→21:25)
[2017-05-31] MEDS: MELATONIN 1 MG TABLET PO SCH (21:25)
[2017-05-31] MEDS: THIAMINE HCL 100 MG TABLET (FP) PO SCH (21:25)
[2017-06-01] MEDS: PRENATAL VITAMINS W/ FOLIC ACID TABLET (FP) PO SCH (10:09)
[2017-06-01] MEDS: IBUPROFEN 400 MG TABLET (FP) PO PRN (10:10)
[2017-06-01] MEDS: TOLNAFTATE 1% CREAM 15 GM TUBE TP SCH ×2 (10:10→21:26)
[2017-06-01] MEDS: THIAMINE HCL 100 MG TABLET (FP) PO SCH (21:26)
[2017-06-01] MEDS: MELATONIN 1 MG TABLET PO SCH (21:26)
[2017-06-02] MEDS: PRENATAL VITAMINS W/ FOLIC ACID TABLET (FP) PO SCH (10:21)
[2017-06-02] MEDS: TOLNAFTATE 1% CREAM 15 GM TUBE TP SCH ×2 (10:22→21:34)
[2017-06-02] MEDS: THIAMINE HCL 100 MG TABLET (FP) PO SCH (21:34)
[2017-06-02] MEDS: MELATONIN 1 MG TABLET PO SCH (21:34)
[2017-06-03] MEDS: IBUPROFEN 400 MG TABLET (FP) PO PRN (10:03)
[2017-06-03] MEDS: PRENATAL VITAMINS W/ FOLIC ACID TABLET (FP) PO SCH (10:03)
[2017-06-03] MEDS: TOLNAFTATE 1% CREAM 15 GM TUBE TP SCH ×2 (10:03→21:29)
[2017-06-03] MEDS: MELATONIN 1 MG TABLET PO SCH (21:28)
[2017-06-03] MEDS: THIAMINE HCL 100 MG TABLET (FP) PO SCH (21:29)
[2017-06-04] MEDS: TOLNAFTATE 1% CREAM 15 GM TUBE TP SCH ×2 (10:16→21:40)
[2017-06-04] MEDS: PRENATAL VITAMINS W/ FOLIC ACID TABLET (FP) PO SCH (10:16)
[2017-06-04] MEDS: IBUPROFEN 400 MG TABLET (FP) PO PRN (10:17)
[2017-06-04] MEDS: MELATONIN 1 MG TABLET PO SCH (21:39)
[2017-06-04] MEDS: THIAMINE HCL 100 MG TABLET (FP) PO SCH (21:39)
[2017-06-05] MEDS: TOLNAFTATE 1% CREAM 15 GM TUBE TP SCH ×2 (09:44→21:32)
[2017-06-05] MEDS: PRENATAL VITAMINS W/ FOLIC ACID TABLET (FP) PO SCH (09:44)
[2017-06-05] MEDS: THIAMINE HCL 100 MG TABLET (FP) PO SCH (21:32)
[2017-06-05] MEDS: MELATONIN 1 MG TABLET PO SCH (21:32)
[2017-06-06] MEDS: PRENATAL VITAMINS W/ FOLIC ACID TABLET (FP) PO SCH (09:58)
[2017-06-06] MEDS: TOLNAFTATE 1% CREAM 15 GM TUBE TP SCH ×2 (09:58→21:16)
[2017-06-06] MEDS: THIAMINE HCL 100 MG TABLET (FP) PO SCH (21:16)
[2017-06-06] MEDS: MELATONIN 1 MG TABLET PO SCH (21:16)
[2017-06-07] MEDS: PRENATAL VITAMINS W/ FOLIC ACID TABLET (FP) PO SCH (10:01)
[2017-06-07] MEDS: IBUPROFEN 400 MG TABLET (FP) PO PRN (10:02)
[2017-06-07] MEDS: TOLNAFTATE 1% CREAM 15 GM TUBE TP SCH ×2 (10:02→21:14)
[2017-06-07] MEDS: MELATONIN 1 MG TABLET PO SCH (21:14)
[2017-06-07] MEDS: THIAMINE HCL 100 MG TABLET (FP) PO SCH (21:14)
[2017-06-08] MEDS: PRENATAL VITAMINS W/ FOLIC ACID TABLET (FP) PO SCH (10:07)
[2017-06-08] MEDS: TOLNAFTATE 1% CREAM 15 GM TUBE TP SCH ×2 (10:07→21:20)
[2017-06-08] MEDS: THIAMINE HCL 100 MG TABLET (FP) PO SCH (21:19)
[2017-06-08] MEDS: MELATONIN 1 MG TABLET PO SCH (21:19)
[2017-06-09] MEDS: TOLNAFTATE 1% CREAM 15 GM TUBE TP SCH ×2 (09:54→21:23)
[2017-06-09] MEDS: PRENATAL VITAMINS W/ FOLIC ACID TABLET (FP) PO SCH (09:54)
[2017-06-09] MEDS: MELATONIN 1 MG TABLET PO SCH (21:23)
[2017-06-09] MEDS: THIAMINE HCL 100 MG TABLET (FP) PO SCH (21:23)
[2017-06-10] MEDS: TOLNAFTATE 1% CREAM 15 GM TUBE TP SCH ×2 (09:56→21:20)
[2017-06-10] MEDS: PRENATAL VITAMINS W/ FOLIC ACID TABLET (FP) PO SCH (09:56)
[2017-06-10] MEDS: THIAMINE HCL 100 MG TABLET (FP) PO SCH (21:20)
[2017-06-10] MEDS: MELATONIN 1 MG TABLET PO SCH (21:20)
[2017-06-11] MEDS: TOLNAFTATE 1% CREAM 15 GM TUBE TP SCH ×2 (09:01→21:27)
[2017-06-11] MEDS: PRENATAL VITAMINS W/ FOLIC ACID TABLET (FP) PO SCH (09:01)
[2017-06-11] MEDS: IBUPROFEN 400 MG TABLET (FP) PO PRN (09:01)
[2017-06-11] MEDS: THIAMINE HCL 100 MG TABLET (FP) PO SCH (21:26)
[2017-06-11] MEDS: MELATONIN 1 MG TABLET PO SCH (21:27)
[2017-06-12 07:03] VITALS: BP 129/74; PULSE 80; TEMP 97.2
[2017-06-12] MEDS: PRENATAL VITAMINS W/ FOLIC ACID TABLET (FP) PO SCH (09:55)
[2017-06-12] MEDS: TOLNAFTATE 1% CREAM 15 GM TUBE TP SCH (09:56)
--- NOTE | 2017-06-12 12:00 | PN ---
Psychiatric Progress Note Vital Signs: Vital Signs Period Temp Pulse Resp BP Sys/[place] Pulse Ox Last 24 Hr 97.2 F 80 18-18 129/74 Date of Session: 06/12/17 Chief Complaint:: discharge visit HPI: Patient has addressed alcohol, PCP, nicotine dependence comorbid Insomnia. ROS: WNL Current Medications: Active Medications Generic Name Dose Route Start Last Admin Trade Name Freq PRN Reason Stop Dose Admin Acetaminophen 650 mg 05/16/17 20:10 Tylenol - PO Q4H PRN PAIN Al Hydroxide/Mg Hydroxide 30 ml 05/16/17 20:10 Mylanta Oral Suspension - PO Q6H PRN DYSPEPSIA Diphenhydramine HCl 50 mg 05/16/17 20:10 Benadryl - PO HSMR1 PRN INSOMNIA Eucalyptus/Menthol/Phenol/Sorbitol 1 each 05/16/17 20:10 Cepastat Lozenge - MM Q4H PRN SORE THROAT Guaifenesin 10 ml 05/16/17 20:10 Robitussin Dm - PO Q6H PRN COUGH Ibuprofen 400 mg 05/16/17 20:10 06/11/17 09:01 Motrin - PO 400 mg Q6H PRN Administration SEVERE PAIN Loperamide HCl 4 mg 05/16/17 20:10 Imodium - PO Q6H PRN DIARRHEA Magnesium Citrate 300 ml 05/16/17 20:10 Citroma - PO Q48H PRN CONSTIPATION Magnesium Hydroxide 30 ml 05/16/17 20:10 Milk Of Magnesia - PO DAILY PRN CONSTIPATION Melatonin 3 mg 05/17/17 22:00 06/11/17 21:27 Melatonin PO 3 mg HS BRYN Administration Nicotine 14 mg 05/16/17 20:10 Nicoderm Patch - TD DAILY PRN WITHDRAWAL(CONT SUBST) Nicotine Polacrilex 2 mg 05/16/17 20:10 Nicorette Gum - BC Q2H PRN NICOTINE REPLACEMENT RX Multivit/Folic Acid/Iron 1 tab 05/17/17 10:00 06/12/17 09:55 Vitamins (Sjr) - PO 1 tab DAILY BRYN Administration Pseudoephedrine/Triprolidine 1 combo 05/16/17 20:10 Actifed - PO TID PRN NASAL CONGESTION Thiamine HCl 100 mg 05/16/17 22:00 06/11/17 21:26 Vitamin B1 - PO 100 mg HS BRYN Administration Tolnaftate 1 applic 05/18/17 11:00 06/12/17 09:56 Tinactin 1% Cream - TP Not Given BID BRYN Current Side Effect: No Lab tests ordered: No Lab tests reviewed: Yes Provider note:: Patient has completed today this program and met his goals, will continue to address his issues at [facility] outpatient treatment program. Patient understands the negative consequences of his substance use and motivated to continue maintain abstinence. Patient is stable for discharge today. Total face to face time:: 15 Mental Status Exam - Mental Status Exam Alert and Oriented to: Time, Place, Person Cognitive Function: Good Patient Appearance: Well Groomed Mood: Hopeful Affect: Appropriate, Mood Congruent Patient Behavior: Appropriate, Cooperative Speech Pattern: Clear, Appropriate Voice Loudness: Normal Thought Process: Goal Oriented Thought Disorder: Not Present Hallucinations: Denies Suicidal Ideation: Denies Homicidal Ideation: Denies Insight/Judgement: Fair Sleep: Fair Appetite: Fair Muscle strength/Tone: Normal Gait/Station: Normal Psychiatric Treatment Plan - Problem List (2) Nicotine dependence Qualifiers: Nicotine product type: cigarettes Substance use status: in withdrawal Qualified Code(s): F17.213 - Nicotine dependence, cigarettes, with withdrawal
== END 2017-06-12 10:40 | disposition home or self-care (01) | DRG 772 ==
LOC: YASAS 16:09 → Y5N 18:27
PROVIDERS: ADMIT Psychiatry & Neurology Psychiatry; ATTEND Psychiatry & Neurology Psychiatry
PROC: HZ42ZZZ Group Counseling for Substance Abuse Treatment, Cognitive-Behavioral (ICD-10-PCS; principal; 2017-05-16)
DX: F10.20 Alcohol dependence, uncomplicated (principal); F16.20 Hallucinogen dependence, uncomplicated; F17.210 Nicotine dependence, cigarettes, uncomplicated; F34.1 Dysthymic disorder; G47.00 Insomnia, unspecified; M54.5 Low back pain; G89.29 Other chronic pain
CPT/HCPCS: 36415; 80053; 81003; 85027; 86593; 90688; 93005; 93010